=== PATIENT | male | born 1995 | race Caucasian/White ===

== ENCOUNTER 2017-02-27 09:20 | Emergency (ER) | payer BC ==
[~2017-02-27] VITALS: Ht 180.3 cm; Wt 86.2 kg
[2017-02-27] MEDS ORDERED: VENTOLIN HFA18 GM INH (09:34)
[2017-02-27] MEDS ORDERED: ALBUTEROL2.5 MG/3 M INH (09:34)
[2017-02-27] MEDS ORDERED: METHYLPREDNISOLO4 M1 PO (09:47)
[2017-02-27] MEDS ORDERED: ZITHROMAX250 MG PO (09:47)
== END 2017-02-27 11:04 | disposition home or self-care (01) ==
LOC: ED 09:20
DX: J45.901 Unspecified asthma with (acute) exacerbation (principal)
CPT/HCPCS: 96374; 99283; J2930

== ENCOUNTER 2017-08-03 10:29 | Emergency (ER) | payer OTHER ==
[~2017-08-03] VITALS: Ht 180.3 cm; Wt 83.9 kg
[~2017-08-03 10:29] MED LIST: ALBUTEROL2.5 MG/3 M INH; METHYLPREDNISOLO4 M1 PO; VENTOLIN HFA18 GM INH; ZITHROMAX250 MG PO
[2017-08-03] MEDS ORDERED: VITAMIN D5000 UNIT PO (10:43)
[2017-08-03] MEDS ORDERED: PREDNISONE20 MG PO (13:03)
[2017-08-03] MEDS ORDERED: ZITHROMAX250 MG PO (13:03)
[2017-08-03] MEDS ORDERED: TYLENOL WITH C1 EACH PO (13:03)
--- NOTE | 2017-08-03 19:53 | EKG ---
[facility] [address] [place] [address] Signed Normal sinus rhythm with sinus arrhythmia Right axis deviation Pulmonary disease pattern Abnormal ECG No previous ECGs available Confirmed by CJ DE LA PAZ MD ([id number] on 08/03/2017 7:53:14 PM Electronically Signed By: CJ DE LA PAZ MD 08/03/171952 PATIENT NAME: KAMRYN SURESH Electrocardiogram DATE OF : [birth year] PHYSICIAN: CJ DE LA PAZ MD REPORT #: [id number] REPORT IS CONFIDENTIAL AND NOT TO BE RELEASED WITHOUT AUTHORIZATION
== END 2017-08-03 13:24 | disposition home or self-care (01) ==
LOC: ED 10:29
DX: J98.2 Interstitial emphysema (principal); J45.901 Unspecified asthma with (acute) exacerbation; J06.9 Acute upper respiratory infection, unspecified; Z79.51 Long term (current) use of inhaled steroids
CPT/HCPCS: 71046; 87081; 87880; 93005; 93010; 94640; 96374; 96375; 99284; J1885; J2930